=== PATIENT | male | born 1960 | race African-American/Black ===

== ENCOUNTER 2022-02-16 19:29 | Emergency (ER) | payer OTHER ==
[~2022-02-16] VITALS: Ht 170.2 cm; Wt 80.7 kg
[2022-02-17] MEDS ORDERED: METHOCARBAMOL 500 MG TAB PO ONE (00:30)
[2022-02-17] MEDS ORDERED: KETOROLAC TROMETH 30 MG/ML 1ML VIAL IM ONE (00:30)
[2022-02-17 01:04] VITALS: BP 169/103
== END 2022-02-17 01:57 | disposition home or self-care (01) ==
LOC: ER 19:29
DX: S33.5XXA Sprain of ligaments of lumbar spine, initial encounter (principal); X58.XXXA Exposure to other specified factors, initial encounter; Y93.89 Activity, other specified; Y92.89 Other specified places as the place of occurrence of the external cause; Y99.8 Other external cause status
CPT/HCPCS: 96372; 99283; J1885